=== PATIENT | male | born 2000 | race Two or more races ===

== ENCOUNTER 2019-02-07 18:27 | Emergency (ER) | payer SELFPAY ==
[~2019-02-07] VITALS: Ht 165.1 cm; Wt 54.4 kg
[2019-02-07 18:44] VITALS: BP 121/57
[2019-02-07] MEDS ORDERED: IBUPROFEN 800 MG TAB PO ONE (23:15)
[2019-02-07] MEDS ORDERED: ACETAMINOPHEN 500 MG TAB PO ONE (23:15)
== END 2019-02-08 00:05 | disposition home or self-care (01) ==
LOC: ER 18:31
DX: S82.61XA Displaced fracture of lateral malleolus of right fibula, initial encounter for closed fracture (principal); S52.502A Unspecified fracture of the lower end of left radius, initial encounter for closed fracture; S40.012A Contusion of left shoulder, initial encounter; M62.838 Other muscle spasm; V89.2XXA Person injured in unspecified motor-vehicle accident, traffic, initial encounter; Y93.I9 Activity, other involving external motion; Y92.410 Unspecified street and highway as the place of occurrence of the external cause; Y99.8 Other external cause status
CPT/HCPCS: 29125; 29515; 73110; 73610